=== PATIENT | male | born 1975 | race Caucasian/White ===

== ENCOUNTER 2017-02-20 18:49 | Emergency (ER) | payer BC ==
[2017-02-20] MEDS ORDERED: Meclizine 25 MG Tab PO ONE ×2 (18:56→19:47)
--- NOTE | 2017-02-20 19:02 | EDM.PDOC ---
ED HPI GENERAL MEDICAL PROBLEM - General Chief Complaint: Syncope Stated Complaint: DIZZY, VOMITING Time Seen by Provider: 02/20/17 18:50 Source of Information: Reports: Patient, RN History Limitations: Reports: No Limitations - History of Present Illness INITIAL COMMENTS - FREE TEXT/NARRATIVE: 41 yo male presents with vertigo associated with emesis x 3. No hematemesis. No fever. No recent head injury. No hx of the same. Sx's worse with turning his head. When he is the most dizzy he has a hard time standing. Is on no meds. Lying in the ER now he is minimally symptomatic. Onset: Today Onset Date: 02/20/17 Duration: Hour(s):, Intermittent, Waxing/Waning Location: Reports: Head Quality: Reports: Other (no pain) Severity: Moderate Improves with: Reports: Immobilization, Rest Worsens with: Reports: Movement Context: Reports: Other (No hx of the same. Unknown precipitating event/cause.) Associated Symptoms: Reports: Diaphoresis, Loss of Appetite, Nausea/Vomiting. Denies: Confusion, Chest Pain, Fever/Chills, Headaches, Shortness of Breath, Syncope Treatments COB SAWYER: Reports: Other (see below) (none) - Related Data Allergies Allergy/AdvReac Type Severity Reaction Status Date / Time No Known Allergies Allergy Verified 02/20/17 18:53 Home Meds: Home Meds Meclizine [Antivert] 25 mg PO Q6H PRN #30 tab.chew 02/20/17 [Rx] ED ROS GENERAL - Review of Systems Review Of Systems: See Below Constitutional: Reports: Weakness (mild), Diaphoresis (better currently), Decreased Appetite (just since onset) HEENT: Reports: No Symptoms Respiratory: Reports: No Symptoms Cardiovascular: Reports: No Symptoms Endocrine: Reports: No Symptoms GI/Abdominal: Reports: Decreased Appetite (due to nausea.), Nausea (no currently ), Vomiting (x 3 total today.). Denies: Abdominal Pain, Black Stool, Bloody Stool, Constipation, Diarrhea, Hematemesis, Hematochezia, Melena, Stool Incontinence : Reports: No Symptoms Musculoskeletal: Reports: No Symptoms Skin: Reports: Diaphoresis (when nauseous and vertiginous.). Denies: Dryness, Bruising, Pruritis, Rash, Erythema, Urticaria Neurological: Reports: Dizziness (spinning sensation.). Denies: Headache, Numbness Psychiatric: Reports: No Symptoms ED EXAM, DIZZINESS - Physical Exam Exam: See Below Exam Limited By: No Limitations General Appearance: Alert, WD/WN, No Apparent Distress Eye Exam: Bilateral Eye: EOMI, Normal Inspection, PERRL Nystagmus: worsens with head to L, worsens with head to R Ears: Normal External Exam, Normal Canal, Hearing Grossly Normal Nose: Normal Inspection, Normal Mucosa, No Blood Throat/Mouth: Normal Inspection, Normal Lips, Normal Teeth, Normal Oropharynx, Normal Voice, No Airway Compromise Head Exam: Atraumatic, Normocephalic Neck: Normal Inspection, Supple Respiratory/Chest: No Respiratory Distress, Lungs Clear, Normal Breath Sounds, No Accessory Muscle Use Cardiovascular: Regular Rate, Rhythm, No Edema GI/Abdominal: Soft, Non-Tender, No Distention Neurological: Alert, Normal Mood/Affect, CN II-XII Intact, No Motor/Sensory Deficits, Oriented x 3 Extremities: Normal Inspection, Normal Range of Motion, Non-Tender, No Pedal Edema Psychiatric: Normal Affect, Normal Mood Skin Exam: Warm, Dry, Intact, Normal Color, No Rash Course - Vital Signs Last Recorded V/S: Last Vital Signs Temp 36.4 C 02/20/17 18:56 Pulse 82 02/20/17 18:56 Resp 16 02/20/17 18:56 BP 134/78 02/20/17 18:56 Pulse Ox 96 02/20/17 18:56 - Orders/Labs/Meds Orders: Active Orders 24 hr Category Date Time Status Orthostatic Vital Signs [RC] ASDIRECTED Care 02/20/17 18:52 Active Meds: Medications Discontinued Medications Generic Name Dose Route Start Last Admin Trade Name Freq PRN Reason Stop Dose Admin Meclizine HCl 25 mg 02/20/17 18:56 02/20/17 19:04 Antivert PO 02/20/17 18:57 25 mg ONETIME ONE Administration Departure - Departure Time of Disposition: 19:49 Disposition: Home, Self-Care 01 Condition: Good Clinical Impression: BPV (benign positional vertigo) Qualifiers: Laterality: unspecified laterality Qualified Code(s): H81.10 - Benign paroxysmal vertigo, unspecified ear - Discharge Information Prescriptions: Meclizine [Antivert] 25 mg PO Q6H PRN #30 tab.chew PRN Reason: Dizziness Referrals: Geovany Padilla MD [Primary Care Provider] - Forms: ED Department Discharge - My Orders Last 24 Hours: My Active Orders 02/20/17 18:52 Orthostatic Vital Signs [RC] ASDIRECTED - Assessment/Plan Last 24 Hours: My Active Orders 02/20/17 18:52 Orthostatic Vital Signs [RC] ASDIRECTED
== END 2017-02-20 20:13 | disposition home or self-care (01) ==
LOC: FB.ED 18:49
DX: H81.10 Benign paroxysmal vertigo, unspecified ear (principal)
CPT/HCPCS: 99283; A9270

== ENCOUNTER 2024-01-24 06:14 | Day surgery (SDC) | payer OTHER ==
[2024-01-24] MEDS ORDERED: Propofol 200 MG/20 ML SDV IV ONE (06:15)
[2024-01-24] MEDS ORDERED: Ondansetron 4 MG/2 ML SDV IVPUSH ONE (06:15)
[2024-01-24] MEDS ORDERED: Ketorolac 30 MG/ML SDV IVPUSH ONE (06:15)
[2024-01-24] MEDS ORDERED: Glycopyrrolate 0.2 MG/ML 5 ML MDV IV ONE (06:15)
[2024-01-24] MEDS ORDERED: Phenylephrine 1% 10 MG/ML SDV IV ONE (06:15)
[2024-01-24] MEDS ORDERED: fentaNYL 100 MCG/2 ML SDV IV ONE (06:15)
[2024-01-24] MEDS ORDERED: Midazolam 1 MG/ML 2 ML SDV IV ONE (06:15)
[2024-01-24] MEDS ORDERED: Rocuronium 100 MG/10 ML MDV IV ONE (06:15)
[2024-01-24] MEDS ORDERED: Lactated Ringers 1,000 ML IV ONE (06:15)
[2024-01-24] MEDS ORDERED: Sugammadex Sodium 200 MG/2 ML VIAL IV ONE (06:15)
[2024-01-24] MEDS ORDERED: Sodium Chloride 0.9% 10 ML Syringe FLUSH PRN (06:15)
[2024-01-24] MEDS: Lactated Ringers 1,000 ML IV SCH (07:20)
[2024-01-24] MEDS: ceFAZolin 2 GM Vial IVPUSH ONE (07:23)
[2024-01-24] MEDS: Lidocaine 1% with EPINEPHrine 1:100,000 20 ML MDV INJECT ONE (07:54)
[2024-01-24] MEDS: Bupivacaine 0.5% 30 ML SDV INJECT ONE (07:54)
[2024-01-24] MEDS: Ondansetron 4 MG/2 ML SDV IVPUSH PRN (11:33)
[2024-01-24] MEDS: hydrOXYzine HCl 50 MG/ML SDV IM ONE (11:33)
== END 2024-01-24 13:45 | disposition home or self-care (01) ==
LOC: FB.SDS 06:14
PROVIDERS: ATTEND Surgery
DX: K40.90 Unilateral inguinal hernia, without obstruction or gangrene, not specified as recurrent (principal); D17.6 Benign lipomatous neoplasm of spermatic cord
CPT/HCPCS: 00830; 88304; C1781; J0665; J0690; J1596; J1885; J2250; J2371; J2405; J2704; J3010; J3410; J3490; J7120